=== PATIENT | female | born 1980 | race African-American/Black ===

== ENCOUNTER 2021-11-22 05:40 | Inpatient (IN) | payer BC ==
[~2021-11-22] VITALS: Ht 157.5 cm; Wt 68.0 kg
[2021-11-22] MEDS ORDERED: CLINDAMYCIN 900 mg/50mL D5W 50 ML IV ONE ×3 (06:30→18:30)
[2021-11-22] MEDS ORDERED: CEFAZOLIN 2 GM IVPB PREMIX 50 ML IV ONE (06:30)
[2021-11-22] MEDS ORDERED: LR 1,000 ML IV SCH ×2 (07:00→14:00)
[2021-11-22 07:21] LABS: BILIRUBIN,URINE NEGATIVE (NEGATIVE); BLOOD, URINE 1+ (NEGATIVE); CLARITY/URINE SL CLOUDY (CLEAR); COLOR,URINE YELLOW (YELLOW); GLUCOSE,URINE NEGATIVE (NEGATIVE); KETONES,URINE 1+ (NEGATIVE); LEUKOCYTE ESTERASE ,URINE 3+ (NEGATIVE); NITRITE, URINE NEGATIVE (NEGATIVE); PH,URINE 6.5 (5.0-8.0); PROTEIN URINE NEGATIVE (NEGATIVE)
[2021-11-22 07:40] LABS: BASOPHILS % (AUTO) 0.3 % (0.0-2.0); EOSINOPHILS # (AUTO) 0.1 K/uL (0.0-0.4); EOSINOPHILS % (AUTO) 1.6 % (0.0-4.0); HEMATOCRIT 33.3 % (36-48); HEMOGLOBIN 11.1 g/dL (12.0-16.0); LYMPHOCYTES # (AUTO) 1.9 K/uL (1.0-5.5); MEAN CORPUSCULAR HEMOGLOBIN 31 pg (27-31); MEAN CORPUSCULAR HGB CONC 33 % (32-36); MEAN CORPUSCULAR VOLUME 93 fL (79.0-98.0); MONOCYTES # (AUTO) 0.6 K/uL (0.0-1.0); MONOCYTES % (AUTO) 9.7 % (1.7-9.3); NEUTROPHILS % (AUTO) 60.4 % (40.0-70.0); PLATELET COUNT (AUTO) 266 K/uL (130-430); RED BLOOD CELL COUNT(AUTO) 3.58 MIL/uL (4.2-6.2); RED CELL DISTRIBUTION WIDTH 13.9 % (9.0-15.0); WHITE BLOOD COUNT (AUTO) 6.6 K/uL (4.8-10.8)
[2021-11-22 08:01] LABS: BACTERIA,URINE MODERATE /HPF (None Seen); TRICHOMONAS,URINE Few /HPF (None Seen); WBC,URINE 50-80 /HPF (0-3)
[2021-11-22 08:24] VITALS: BP_SYST 102
[2021-11-22] MEDS ORDERED: METHYLERGONOVINE MALEATE 0.2 MG/ML AMP ONE (12:18)
[2021-11-22] MEDS ORDERED: ONDANSETRON HCL 4 MG/2 ML VIAL IVP ONE (12:30)
[2021-11-22] MEDS ORDERED: METOCLOPRAMIDE HCL 10 MG/2 ML VIAL IVP ONE (12:30)
[2021-11-22] MEDS ORDERED: LR 1,000 ML IV.SOLN IV ONE (12:30)
[2021-11-22] MEDS ORDERED: ePHEDrine sulfate 50 MG/ML VIAL IVP ONE (12:30)
[2021-11-22] MEDS ORDERED: BUPIVACAINE /PF 0.75% 10 ML VIAL INJ ONE (12:30)
[2021-11-22] MEDS ORDERED: OXYTOCIN 10 UNIT/ML VIAL IV ONE (12:30)
[2021-11-22] MEDS ORDERED: NS IRRIG SOLN 1000 ML IR ONE (12:30)
[2021-11-22] MEDS ORDERED: DEXAMETHASONE SOD PHOSPHATE 4 MG/ML VIAL IVP ONE (12:30)
[2021-11-22] MEDS ORDERED: fentaNYL CITRATE/PF 100 MCG/2 ML AMP IVP ONE (12:30)
[2021-11-22] MEDS ORDERED: MORPHINE SULFATE 10 MG/ML VIAL IVP ONE (12:30)
[2021-11-22] MEDS ORDERED: NS 1000 ML IV.SOLN IV ONE (12:30)
[2021-11-22] MEDS ORDERED: DIPH-TET-PERTUS Vaccine 0.5 ML VIAL (ADACEL) I.M. PRN (14:00)
[2021-11-22] MEDS ORDERED: TEMAZEPAM 15 MG CAPSULE PO PRN (14:00)
[2021-11-22] MEDS ORDERED: BISACODYL 10 MG/SUPPOSITORY RC PRN (14:00)
[2021-11-22] MEDS ORDERED: RHO(D) IMMUNE GLOBULIN/MALTOSE 1500 UNITS/1.3 ML (WINHRO) IM PRN (14:00)
[2021-11-22] MEDS ORDERED: OXYCODONE/ACETAMINOPHEN *10*mg/325 mg TABLET PO PRN (14:00)
[2021-11-22] MEDS ORDERED: HYDROcodone/ACETAMIN 5-325 MG TAB (NORCO/ VICODIN) PO PRN (14:00)
[2021-11-22] MEDS ORDERED: ANUSOL 1 EA SUPP.RECT (PREPARATION H) RC PRN (14:00)
[2021-11-22] MEDS ORDERED: NALOXONE HCL 0.4 MG/ML AMP (NARCAN) IVP PRN ×2 (14:00→14:30)
[2021-11-22] MEDS ORDERED: MEASLES,MUMPS&RUBELLA VACC/PF 12500 UNIT/0.5 ML VIAL SUBQ PRN (14:00)
[2021-11-22] MEDS ORDERED: LANOLIN 7 GM OINT. TP PRN (14:00)
[2021-11-22 14:03] VITALS: BP_SYST 110
[2021-11-22] MEDS ORDERED: NALBUPHINE HCL 10 MG/ML AMP IVP PRN (14:30)
[2021-11-22] MEDS ORDERED: ONDANSETRON HCL 4 MG/2 ML VIAL IVP PRN (14:30)
[2021-11-22] MEDS ORDERED: DIPHENHYDRAMINE INJ 50 MG/ML VIAL IVP PRN (14:30)
[2021-11-22] MEDS ORDERED: CLINDAMYCIN 900 MG in D5W 100 ML IV SCH (17:45)
[2021-11-22] MEDS: OXYTOCIN/0.9 % SODIUM CHLORIDE 1,000 ML IV SCH (18:23)
[2021-11-22] MEDS ORDERED: SENNOSIDES/DOCUSATE SODIUM 1 TAB TABLET(SENOKOT-S) PO SCH (21:00)
[2021-11-22] MEDS ORDERED: CLINDAMYCIN 900 mg/50mL D5W 50 ML IV SCH (22:00)
[2021-11-22] MEDS: KETOROLAC TROMETHAMINE 30 MG VIAL IVP SCH (23:36)
[2021-11-23] MEDS: OXYTOCIN/0.9 % SODIUM CHLORIDE 1,000 ML IV SCH (01:51)
[2021-11-23] MEDS ORDERED: CLINDAMYCIN 900 MG in D5W 100 ML IV SCH (02:00)
[2021-11-23] MEDS ORDERED: CLINDAMYCIN 900 mg/50mL D5W 50 ML IV SCH (02:00)
[2021-11-23] MEDS: KETOROLAC TROMETHAMINE 30 MG VIAL IVP SCH ×3 (05:33→17:31)
[2021-11-23 07:56] LABS: BASOPHILS % (AUTO) 0.2 % (0.0-2.0); EOSINOPHILS % (AUTO) 0.3 % (0.0-4.0); HEMATOCRIT 32.8 % (36-48); HEMOGLOBIN 10.7 g/dL (12.0-16.0); LYMPHOCYTES # (AUTO) 1.7 K/uL (1.0-5.5); LYMPHOCYTES % (AUTO) 17.3 % (20.5-51.5); MEAN CORPUSCULAR HEMOGLOBIN 31 pg (27-31); MEAN CORPUSCULAR HGB CONC 33 % (32-36); MEAN CORPUSCULAR VOLUME 95 fL (79.0-98.0); MONOCYTES # (AUTO) 0.8 K/uL (0.0-1.0); MONOCYTES % (AUTO) 7.9 % (1.7-9.3); NEUTROPHILS # (AUTO) 7.3 K/uL (1.8-7.7); NEUTROPHILS % (AUTO) 74.3 % (40.0-70.0); PLATELET COUNT (AUTO) 264 K/uL (130-430); RED BLOOD CELL COUNT(AUTO) 3.47 MIL/uL (4.2-6.2); RED CELL DISTRIBUTION WIDTH 14.1 % (9.0-15.0); WHITE BLOOD COUNT (AUTO) 9.8 K/uL (4.8-10.8)
[2021-11-23] MEDS: DOCUSATE SODIUM 100 MG CAPSULE PO SCH ×2 (09:13→21:41)
[2021-11-23] MEDS: SIMETHICONE 80 MG TAB.CHEW PO PRN (09:13)
[2021-11-23] MEDS: OXYCODONE/ACETAMINOPHEN 5-325 TABLET PO PRN ×3 (09:14→21:35)
[2021-11-23] MEDS: DIPHENHYDRAMINE HCL 12.5 MG/5 ML UDC PO PRN ×3 (10:55→23:57)
[2021-11-23] MEDS: IBUPROFEN 600 MG TABLET PO SCH (23:58)
[2021-11-24] MEDS: IBUPROFEN 600 MG TABLET PO SCH ×3 (06:07→18:07)
[2021-11-24] MEDS: OXYCODONE/ACETAMINOPHEN 5-325 TABLET PO PRN ×3 (08:38→19:37)
[2021-11-24] MEDS: SIMETHICONE 80 MG TAB.CHEW PO PRN (08:38)
[2021-11-24] MEDS: DOCUSATE SODIUM 100 MG CAPSULE PO SCH (08:38)
[2021-11-24] MEDS ORDERED: PERC10 PO (16:27)
== END 2021-11-24 19:40 | disposition home or self-care (01) | DRG 788 ==
LOC: SPU 05:40
PROVIDERS: ADMIT Specialist; ATTEND Specialist
PROC: 0UB90ZZ Excision of Uterus, Open Approach (ICD-10-PCS; 2021-11-22)
PROC: 10D00Z1 Extraction of Products of Conception, Low, Open Approach (ICD-10-PCS; principal; 2021-11-22 12:30)
DX: O34.211 Maternal care for low transverse scar from previous cesarean delivery (principal); O34.13 Maternal care for benign tumor of corpus uteri, third trimester; D25.1 Intramural leiomyoma of uterus; Z3A.39 39 weeks gestation of pregnancy; Z37.0 Single live birth
CPT/HCPCS: 36415; 81000; 85025; 86592; 86886; 86900; 86901; 87086; 88307; J1100; J1200; J1885; J2210; J2270; J2405; J2590; J2765; J3010; J3490; J7030; J7120